=== PATIENT | female | born 2000 | race Two or more races ===

== ENCOUNTER 2019-01-22 11:27 | Emergency (ER) | payer MEDICAID ==
--- NOTE | 2019-01-22 12:20 | ED Physician Chart ---
ED Chief Complaint/HPI - Patient Information Date Seen:: 01/22/19 Time Seen:: 12:05 Chief Complaint:: dark urine History of Present Illness:: Patient's had dark urine for last 1 month increased in the last 1 week. She thinks she has a urinary tract infection and is dehydrated. No vomiting or diarrhea. Patient is constipated. Allergies:: Allergies Allergy/AdvReac Type Severity Reaction Status Date / Time bupropion [From Wellbutrin] Allergy Verified 01/22/19 11:54 ceftriaxone [From Rocephin] Allergy Verified 01/22/19 11:55 Vitals:: Vital Signs - 8 hr 01/22/19 11:40 Temp 97.3 F HR 80 RR 18 BP 116/81 O2 Sat % 100 Historian:: Patient Review:: Nurse's Note Reviewed ED Review of Systems - Review of Systems General/Constitutional: No fever, No chills, Weakness Skin: No skin lesions Head: No headache Eyes: No loss of vision ENT: No earache Neck: No neck pain, No swelling Cardio Vascular: No chest pain, No palpitations Pulmonary: SOB GI: No nausea, No vomiting, No diarrhea G/U: Other (see history) Health Analyst: No abnormal vaginal bleed Musculoskeletal: No bone or joint pain Endocrine: No polyuria, No polydipsia Psychiatric: Prior psych history Hematopoietic: No bruising Allergic/Immuno: No urticaria Neurological: No syncope, No focal symptoms, No weakness, Other (lightheaded) Family Medical History - Family Member Mother Age: 55 Ethnicity: Non- Living Status: Still Living Hx Family Stroke: Yes ED Physical Exam - Physical Examination General/Constitutional: Awake, Well-developed, well-nourished, Alert, No distress, GCS 15, Non-toxic appearing, Ambulatory Head: Atraumatic Eyes: Lids, conjuctiva normal, PERRL, EOMI Skin: Nl inspection, No rash, No skin lesions, No ecchymosis, Well hydrated, No lymphadenopathy ENMT: External ears, nose nl, Nasal exam nl, Lips, teeth, gums nl Neck: Nontender, Full ROM w/o pain, No JVD, No nuchal rigidity, No bruit, No mass, No stridor Respiratory: Nl effort/Exclusion, Clear to Auscultation, No Wheeze/Rhonchi/Rales Cardio Vascular: RRR, No murmur, gallop, rubs, NL S1 S2 GI: No tenderness/rebounding/guarding, No organomegaly, No hernia, Normal BS's, Nondistended, No mass/bruits, No McBurney tenderness : No CVA tenderness Extremities: No tenderness or effusion, Full ROM, normal strength in all extremities, No edema, Normal digits & nails Neuro/Psych: Alert/oriented, DTR's symmetric, Normal sensory exam, Normal motor strength, Judgement/insight normal, Mood normal, Normal gait, No focal deficits Misc: Normal back, No paraspinal tenderness ED Labs/Radiology/EKG Results - Lab Results Results: Laboratory Results WBC 5.9 Th/cmm (4.8-10.8) 01/22/19 12:00 RBC 4.86 Mil/cmm (3.80-5.10) 01/22/19 12:00 Hgb 14.3 gm/dL (12-16) 01/22/19 12:00 Hct 43.8 % (41.0-60) 01/22/19 12:00 MCV 90.1 fl (81-100) 01/22/19 12:00 MCH 29.4 pg (27.0-31.0) 01/22/19 12:00 MCHC Differential 32.6 pg (28.0-36.0) 01/22/19 12:00 RDW 11.5 % (11.5-20.0) 01/22/19 12:00 Plt Count 255 Th/cmm (150-400) 01/22/19 12:00 MPV 8.1 fl 01/22/19 12:00 Neutrophils % 48.5 % (40.0-80.0) 01/22/19 12:00 Lymphocytes % 42.8 % (20.0-50.0) 01/22/19 12:00 Monocytes % 6.2 % (2.0-10.0) 01/22/19 12:00 Eosinophils % 2.0 % (0.0-5.0) 01/22/19 12:00 Basophils % 0.5 % (0.0-2.0) 01/22/19 12:00 Sodium 139 mEq/L (136-145) 01/22/19 12:00 Potassium 3.9 mEq/L (3.5-5.1) 01/22/19 12:00 Chloride 103 mEq/L (98-107) 01/22/19 12:00 Carbon Dioxide 24.5 mEq/L (21.0-31.0) 01/22/19 12:00 Anion Gap 15.4 (7.0-16.0) 01/22/19 12:00 BUN 13 mg/dL (7-25) 01/22/19 12:00 Creatinine 0.9 mg/dL (0.6-1.2) 01/22/19 12:00 Est GFR ( Amer) > 60.0 ml/min (>90) 01/22/19 12:00 Est GFR (Non-Af Amer) > 60.0 ml/min 01/22/19 12:00 BUN/Creatinine Ratio 14.4 01/22/19 12:00 Glucose 103 mg/dL (70-105) 01/22/19 12:00 Calcium 10.5 mg/dL (8.6-10.3) H 01/22/19 12:00 Magnesium 2.1 mg/dL (1.9-2.7) 01/22/19 12:00 Urine Source CLEAN C 01/22/19 11:45 Urine Color YELLOW 01/22/19 11:45 Urine Clarity HAZY (CLEAR) 01/22/19 11:45 Urine pH 8.5 (4.6 - 8.0) 01/22/19 11:45 Ur Specific Dawn 1.010 (1.005-1.030) 01/22/19 11:45 Urine Protein 30 mg/dL (NEGATIVE) H 01/22/19 11:45 Urine Glucose (UA) NEGATIVE mg/dL (NEGATIVE) 01/22/19 11:45 Urine Ketones NEGATIVE mg/dL (NEGATIVE) 01/22/19 11:45 Urine Blood NEGATIVE (NEGATIVE) 01/22/19 11:45 Urine Nitrate NEGATIVE (NEGATIVE) 01/22/19 11:45 Urine Bilirubin NEGATIVE (NEGATIVE) 01/22/19 11:45 Urine Urobilinogen 1.0 E.U./dL (0.2 - 1.0) 01/22/19 11:45 Ur Leukocyte Esterase NEGATIVE (NEGATIVE) 01/22/19 11:45 Urine RBC 0-2 /hpf (0-5) 01/22/19 11:45 Urine WBC 0-2 /hpf (0-5) 01/22/19 11:45 Ur Epithelial Cells OCCASIONAL /lpf (FEW) 01/22/19 11:45 Urine Bacteria FEW /hpf (NONE SEEN) 01/22/19 11:45 Urine Test NEGATIVE 01/22/19 11:45 ED Assessment - Assessment General Assessment: Patient thinks she is dehydrated that laboratory tests are normal. Specific gravity of the urine is not elevated at 1.010. ED Septic Shock - . Is Septic Shock (SBP<90, OR Lactate>4 mmol\L) present?: No - <6hrs of presentation: Vital Signs: Vital Signs - 8 hr 01/22/19 11:40 Temp 97.3 F HR 80 RR 18 BP 116/81 O2 Sat % 100 ED Reassessment (Disposition) - Reassessment Reassessment Condition:: Improved - Diagnosis Diagnosis:: . Acute viiral syndrome - Aftercare/Follow up Instructions Aftercare/Follow-Up Instructions:: Refer to Discharge Instructions - Patient Disposition Discharge/Transfer:: Home Condition at Disposition:: Stable, Improved
[2019-01-22 12:21] LABS: URINE SOURCE CLEAN C
[2019-01-22 12:21] LABS: % BASOPHILS 0.5 % (0.0-2.0); % LYMPHOCYTES 42.8 % (20.0-50.0); % MONOCYTES 6.2 % (2.0-10.0); % NEUTROPHILS 48.5 % (40.0-80.0); EOSINOPHILE ABSOLUTE 0.1 Th/cmm (0.1-0.4); HEMATOCRIT 43.8 % (41.0-60); HEMOGLOBIN 14.3 gm/dL (12-16); LYMPHOCYTE ABSOLUTE 2.5 Th/cmm (1.5-3.0); MEAN CELL VOLUME 90.1 fl (81-100); MEAN CORPUSCULAR HEMOGLOBIN 29.4 pg (27.0-31.0); MEAN CORPUSCULAR HGB CONC 32.6 pg (28.0-36.0); MEAN PLATELET VOLUME 8.1 fl; MONOCYTE ABSOLUTE 0.4 Th/cmm (0.3-1.0); NEUTROPHILE ABSOLUTE 2.9 Th/cmm (1.8-8.0); PLATELET COUNT 255 Th/cmm (150-400); RED BLOOD COUNT 4.86 Mil/cmm (3.80-5.10); RED CELL DISTRIBUTION WIDTH 11.5 % (11.5-20.0); WHITE BLOOD COUNT 5.9 Th/cmm (4.8-10.8)
[2019-01-22] MEDS: Sodium Chloride 0.9% 1,000 ML IV ONE ×2 (12:28→13:16)
[2019-01-22 12:30] LABS: URINE BILIRUBIN NEGATIVE (NEGATIVE); URINE BLOOD NEGATIVE (NEGATIVE); URINE GLUCOSE (UA) NEGATIVE (NEGATIVE); URINE KETONE NEGATIVE (NEGATIVE); URINE LEUKOCYTE ESTERASE NEGATIVE (NEGATIVE); URINE NITRATE NEGATIVE (NEGATIVE); URINE PH 8.5 (4.6 - 8.0); URINE PROTEIN 30 mg/dL (NEGATIVE)
[2019-01-22 12:37] LABS: URINE CLARITY HAZY (CLEAR); URINE COLOR YELLOW; URINE MICROSCOPIC INDICATED? YES
[2019-01-22 12:40] LABS: ANION GAP 15.4 (7.0-16.0); BUN - UREA NITROGEN 13 mg/dL (7-25); CALCIUM SERUM 10.5 mg/dL (8.6-10.3); CARBON DIOXIDE 24.5 mEq/L (21.0-31.0); CHLORIDE 103 mEq/L (98-107); CREATININE - SERUM 0.9 mg/dL (0.6-1.2); GFR AFRICAN-AMERICAN > 60.0 ml/min (>90); GFR NON AFRICAN-AMERICAN > 60.0 ml/min; GLUCOSE 103 mg/dL (70-105); MAGNESIUM 2.1 mg/dL (1.9-2.7); POTASSIUM SERUM 3.9 mEq/L (3.5-5.1); SODIUM SERUM 139 mEq/L (136-145)
[2019-01-22 12:48] LABS: URINE RBC 0-2 /hpf (0-5)
[2019-01-22 12:49] LABS: URINE BACTERIA FEW /hpf (NONE SEEN); URINE EPITHELIAL CELLS OCCASIONAL /lpf (FEW); URINE WBC 0-2 /hpf (0-5)
== END 2019-01-22 14:15 | disposition home or self-care (01) ==
LOC: ER 11:27
DX: B34.9 Viral infection, unspecified (principal); Z88.1 Allergy status to other antibiotic agents; Z88.8 Allergy status to other drugs, medicaments and biological substances
CPT/HCPCS: 36415-UA; 80048-TC; 81001-TC; 81025-TC; 83735-TC; 85025-TC; J7030; Z7502